=== PATIENT | female | born 1995 | race Two or more races ===

== ENCOUNTER 2017-09-04 12:00 | Emergency (ER) | payer OTHER ==
[~2017-09-04] VITALS: Ht 152.4 cm; Wt 52.7 kg
[2017-09-04] MEDS ORDERED: SODIUM CHLORIDE 0.9% 1,000ML IVBOLUS ONE (13:00)
[2017-09-04] MEDS ORDERED: SODIUM CHLORIDE FLUSH 10ML SYR IVF ONE (13:00)
[2017-09-04 13:40] LABS: BASOPHILS # (AUTO) 0.02 x10^3/uL (0-0.1); BASOPHILS % (AUTO) 0 % (0-1); EOSINOPHILS # (AUTO) 0.09 x10^3/uL (0-0.4); EOSINOPHILS % (AUTO) 1 % (1-7); LYMPHOCYTES % (AUTO) 31 % (22-44); MD NO; MEAN CORPUSCULAR HEMOGLOBIN 30.2 pg (27.0-34.8); MEAN CORPUSCULAR HGB CONC 33.7 g/dL (32.4-35.8); MEAN CORPUSCULAR VOLUME 89.6 fL (80-100); MONOCYTES # (AUTO) 0.41 x10^3/uL (0.2-0.8); MONOCYTES % (AUTO) 6 % (2-9); NEUTROPHILS # (AUTO) 4.44 x10^3/uL (1.8-6.8); NEUTROPHILS % (AUTO) 62 % (42-75); PLATELET COUNT 214 x10^3/uL (130-400); RED BLOOD COUNT 4.82 x10^6/uL (3.82-5.3); RED CELL DISTRIBUTION WIDTH 13.6 % (9.6-15.2)
[2017-09-04 13:52] LABS: ALANINE AMINOTRANSFERASE 17 U/L (12-78); ANION GAP 6 mmol/L (5-15); CALCIUM 8.9 mg/dL (8.5-10.1); CHLORIDE 108 mmol/L (98-107); CREATININE 0.49 mg/dL (0.55-1.02)
[2017-09-04 14:09] LABS: ALKALINE PHOSPHATASE 82 U/L (45-117); BILIRUBIN,TOTAL 0.5 mg/dL (0.2-1.0); TOTAL PROTEIN 7.3 g/dL (6.4-8.2)
[2017-09-04 14:33] LABS: MICROSCOPIC AUTO
[2017-09-04 14:34] LABS: CULTURE INDICATED? NO
[2017-09-04 15:33] VITALS: BP 115/67
== END 2017-09-04 15:36 | disposition home or self-care (01) ==
LOC: ED 15:30
DX: O46.91 Antepartum hemorrhage, unspecified, first trimester (principal); Z3A.08 8 weeks gestation of pregnancy
CPT/HCPCS: 36415; 76801; 80053; 81001; 84702; 85025; 86901; 96360; 99285; J7030

== ENCOUNTER 2017-09-13 16:57 | Observation (INO) | payer OTHER, MEDICAID ==
[~2017-09-13] VITALS: Ht 152.4 cm; Wt 48.3 kg
[2017-09-13] MEDS ORDERED: SODIUM CHLORIDE FLUSH 10ML SYR IVF ONE (17:00)
[2017-09-13] MEDS ORDERED: SODIUM CHLORIDE 0.9% 1,000ML IVBOLUS ONE (17:00)
[2017-09-13 17:35] LABS: BASOPHILS # (AUTO) 0.04 x10^3/uL (0-0.1); BASOPHILS % (AUTO) 0 % (0-1); EOSINOPHILS # (AUTO) 0.04 x10^3/uL (0-0.4); EOSINOPHILS % (AUTO) 0 % (1-7); LYMPHOCYTES # (AUTO) 1.42 x10^3/uL (1-3.4); LYMPHOCYTES % (AUTO) 13 % (22-44); MD NO; MEAN CORPUSCULAR HEMOGLOBIN 30.2 pg (27.0-34.8); MEAN CORPUSCULAR HGB CONC 33.6 g/dL (32.4-35.8); MEAN CORPUSCULAR VOLUME 90.1 fL (80-100); MEAN PLATELET VOLUME 9.2 fL (7.4-10.4); MONOCYTES # (AUTO) 0.38 x10^3/uL (0.2-0.8); MONOCYTES % (AUTO) 4 % (2-9); NEUTROPHILS # (AUTO) 8.96 x10^3/uL (1.8-6.8); NEUTROPHILS % (AUTO) 83 % (42-75); PLATELET COUNT 186 x10^3/uL (130-400); RED BLOOD COUNT 3.93 x10^6/uL (3.82-5.3); RED CELL DISTRIBUTION WIDTH 13.4 % (9.6-15.2)
[2017-09-13 17:40] LABS: ALBUMIN 3.3 g/dL (3.4-5.0); ANION GAP 6 mmol/L (5-15); CALCIUM 7.4 mg/dL (8.5-10.1); CHLORIDE 113 mmol/L (98-107); CREATININE 0.51 mg/dL (0.55-1.02)
[2017-09-13 18:31] VITALS: BP 103/50
[2017-09-13] MEDS ORDERED: METHYLERGONOVINE 0.2 MG/ML IM ONE (18:36)
[2017-09-13] MEDS ORDERED: OXYTOCIN 10 UNITS/ML, 1ML ONE (18:36)
[2017-09-13] MEDS ORDERED: FENTANYL PF 250 MCG/5ML ONE (18:45)
[2017-09-13] MEDS ORDERED: DEXAMETHASONE 4 MG/ML, 1ML ONE (18:55)
[2017-09-13 18:56] VITALS: BP 80/39
[2017-09-13] MEDS ORDERED: CEFAZOLIN 1,000 MG ONE (19:09)
[2017-09-13] MEDS ORDERED: PROPOFOL 10 MG/ML, 20ML ONE (19:16)
[2017-09-13] MEDS ORDERED: ROCURONIUM 10 MG/ML,10ML ONE (19:16)
[2017-09-13] MEDS ORDERED: SUCCINYLCHOLINE 20 MG/ML, 10ML ONE (19:16)
[2017-09-13] MEDS ORDERED: ONDANSETRON 2MG/ML, 2ML ONE (19:18)
[2017-09-13] MEDS ORDERED: ONDANSETRON 2MG/ML, 2ML IVPush PRN (19:30)
[2017-09-13] MEDS ORDERED: morphine SULFATE 10 MG/ML, 1ML IVPush PRN (19:30)
[2017-09-13] MEDS ORDERED: OXYcodone/APAP 5/325MG TABLET PO PRN (19:30)
[2017-09-13 20:17] LABS: BASOPHILS # (AUTO) 0.02 x10^3/uL (0-0.1); BASOPHILS % (AUTO) 0 % (0-1); EOSINOPHILS % (AUTO) 0 % (1-7); LYMPHOCYTES # (AUTO) 1.11 x10^3/uL (1-3.4); LYMPHOCYTES % (AUTO) 12 % (22-44); MD NO; MEAN CORPUSCULAR HGB CONC 34.3 g/dL (32.4-35.8); MEAN CORPUSCULAR VOLUME 87.6 fL (80-100); MEAN PLATELET VOLUME 9.3 fL (7.4-10.4); MONOCYTES # (AUTO) 0.28 x10^3/uL (0.2-0.8); MONOCYTES % (AUTO) 3 % (2-9); NEUTROPHILS % (AUTO) 85 % (42-75); PLATELET COUNT 141 x10^3/uL (130-400); RED BLOOD COUNT 3.86 x10^6/uL (3.82-5.3); RED CELL DISTRIBUTION WIDTH 14.2 % (9.6-15.2)
[2017-09-13] MEDS ORDERED: HYDROmorphone 2 MG/ML, 1ML ONE (20:37)
[2017-09-13] MEDS: IBUPROFEN 600 MG TABLET PO SCH (21:00)
[2017-09-13] MEDS ORDERED: HYDROmorphone 1 MG/ML, 1ML IV PRN (21:00)
[2017-09-13] MEDS: SIMETHICONE 80 MG CHEW TAB PO SCH (21:00)
[2017-09-14 03:30] VITALS: BP 90/42
[2017-09-14] MEDS: LACTATED RINGERS 1,000 ML IV SCH ×3 (07:29→13:22)
[2017-09-14] MEDS: IBUPROFEN 600 MG TABLET PO SCH ×2 (07:33→11:10)
[2017-09-14] MEDS: DOCUSATE 100 MG CAPSULE PO SCH ×2 (08:30→08:32)
[2017-09-14] MEDS: SIMETHICONE 80 MG CHEW TAB PO SCH (08:30)
[2017-09-14 09:42] VITALS: BP 94/57
[2017-09-14 13:29] VITALS: BP 95/49
[2017-09-14] MEDS ORDERED: FLU VACC QS2017-18 (36MOS+) UP/PF 0.5 ML IM-VACC ONE (13:30)
== END 2017-09-14 14:46 | disposition home or self-care (01) ==
LOC: ED 16:59 → INTOOBSV 17:00 → EDIP 17:00 → ED 17:06 → 4NOR 21:25 → DCLOUNGE 09-14 14:37
PROVIDERS: ADMIT Obstetrics & Gynecology Gynecology; ATTEND Obstetrics & Gynecology Gynecology
DX: O02.1 Missed abortion (principal); O46.91 Antepartum hemorrhage, unspecified, first trimester; O99.011 Anemia complicating pregnancy, first trimester; O26.51 Maternal hypotension syndrome, first trimester; Z3A.01 Less than 8 weeks gestation of pregnancy
CPT/HCPCS: 36415; 36430; 59812; 80048; 82040; 84702; 85014; 85018; 85025; 86850; 86900; 86923; 88305; 90471; 90686; 93005; 96374; 99291; G0378; J0330; J0690; J1100; J1170; J2405; J2704; J3010; P9016; J2210; J2590